=== PATIENT | female | born 1985 | race African-American/Black ===

== ENCOUNTER 2017-10-27 02:53 | Inpatient (IN) | payer OTHER ==
--- NOTE | 2017-10-11 14:09 | History & Physical Pre-Op ---
Kati Crooks 10/11/17 1400: General Information and HPI MD Statement: I have seen and personally examined BEULAH PAN and documented this H&P. The patient is a 32 year old F who presented with a patient stated chief complaint of neck pain with limited range of motion and right elbow muscle soreness, s/p ACDF C4-6 on 09/21/2017. Source of Information: patient, old records Exam Limitations: no limitations History of Present Illness: Beulah is a 32-year-old female who is recently status post anterior cervical decompression fusion C4-C6 on September 21, 2017. She is doing well postoperatively but does admit to achiness in her neck with range of motion as well as some minimal incisional discomfort. She does complain of right elbow muscle soreness but no left-sided symptoms. Due to the intraoperative findings of osteoporosis and spinal instability at the time of her anterior procedure, it was determined that Beulah was in need of a posterior cervical decompression and fusion with instrumentation and iliac crest bone grafting C4-C6 on 10/27/2017 for restoring stability. 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 . Psychosocial History Where Do You Live? Home Who Do You Live With? child Primary Language: Malay Smoking Status: Never Smoked ETOH Use: denies use Illicit Drug Use: denies illicit drug use Other Social History: Single with boyfriend. (1) 7 y/o son Employment History Employment: Employed Profession/Employer: [employer] Review of Systems Review of Systems: Remarkable for the above complaints. Exam & Diagnostic Data Last 24 Hrs of Vital Signs/I&O Height: 5' 1/4" Weight: 163 lbs. Physical Exam General Appearance Alert, Oriented X3, Cooperative Skin No Rashes, No Breakdown, No Significant Lesion HEENT Atraumatic, PERRLA, EOMI, Mucous Membr. moist/pink Neck Supple, No JVD, No thryomegaly, +2 Carotid Pulse wo Bruit Lymphatic Cervical nl Cardiovascular Regular Rate, Normal S1, Normal S2, No Murmurs Lungs Clear to Auscultation, Normal Air Movement Abdomen Normal Bowel Sounds, Soft, No Tenderness, No Masses Neurological Normal Gait, Normal Speech, Strength at 5/5 X4 Ext, Normal Tone, Sensation Intact, Reflexes 2+ Extremities No Clubbing, No Cyanosis, No Edema, Normal Pulses Vascular Normal Pulses Last 24 Hrs of Labs/Marlon: Laboratory Tests 10/27/17 0804: Anion Gap 12, Estimated GFR > 60, BUN/Creatinine Ratio 13.3, Glucose 101 H, Calcium 10.2, Total Bilirubin 1.2, AST 19, ALT 29, Alkaline Phosphatase 57, Total Protein 7.2, Albumin 4.5, Globulin 2.7, Albumin/Globulin Ratio 1.7, PT 12.0, INR 1.14, APTT 30, CBC w Diff NO MAN DIFF REQ, RBC 4.40, MCV 90.7, MCH 31.1 H, RDW 13.5, MPV 8.2, Gran % 42.6, Lymphocytes % 48.0, Monocytes % 6.5, Eosinophils % 2.2, Basophils % 0.7, Absolute Granulocytes 1.7, Absolute Lymphocytes 1.9, Absolute Monocytes 0.3, Absolute Eosinophils 0.1, Absolute Basophils 0, PUBS MCHC 34.3, Urine Color YEL, Urine Clarity CLEAR, Urine pH 7.0, Ur Specific [place] 1.015, Urine Protein NEG, Urine Ketones NEG, Urine Nitrite NEG, Urine Bilirubin NEG, Urine Urobilinogen 0.2, Ur Leukocyte Esterase NEG, Ur Microscopic EXAM NOT REQUIRED, Urine Hemoglobin NEG, Urine Glucose NEG, Urine Test NEGATIVE Assessment/Plan Assessment/Plan: Assessment: Spinal Instability and Osteoporosis s/p ACDF C4-6 on 09/21/2017. Plan: Beulah is scheduled for a posterior cervical decompression and fusion with instrumentation and iliac crest bone grafting C4-C6 on 10/27/2017. We discussed the procedure in full detail as well as the pre-and postoperative course, follow-up care, and anticipated recovery. We also discussed the postoperative do's and don'ts and discharge instructions. We discussed the benefits, alternatives, and risks, not to exclude, , paralysis, infection, bleeding, continued pain, failure of the surgery, need for future surgery, DVT, vascular injury, CSF leak, dysphagia, and hoarseness, etc., and given these risks, she still wishes to proceed. She is scheduled for an appointment with her primary care physician for preoperative clearance. Any changes in this patient's plan is based on this patient's outpatient clinical presentation. She has asked if possible, that we use sutures for the skin closure. As Ranked By This Provider Problem List: 1. Hypertension 2. Asthma 3. ADHD Copies To: Crispin KATZ,Neal Attending MD Review Statement Attending Statement Attending MD Statement: examined this patient, discuss w/resident/PA/VAMP CREASER, agreed w/resident/PA/VAMP CREASER, reviewed images Neal Roa MD 10/27/17 1152: General Information and HPI Allergies/Medications Allergies: Coded Allergies: pineapple (UNKNOWN 10/27/17) PINEAPPLES Home Med list Acetaminophen (Tylenol Extra Strength) 500 MG TABLET 1 TAB PO TID PRN TEMP>101 Albuterol Sulfate (Ventolin Hfa) 90 MCG HFA.AER.AD 2 PUF INH Q4 PRN SHORTNESS OF BREATH Bisacodyl (Dulcolax) 10 MG SUPP.RECT 1 SUP RC DAILY PRN CONSTIPATION Budesonide/Formoterol Fumarate (Symbicort 160-4.5 Mcg Inhaler) 160 MCG-4.5 MCG/ ACTUATION HFA.AER.AD 2 PUF INH BID SHORTNESS OF BREATH Calcium Carbonate/Vitamin D3 (Os-Yunior 500+D3 Caplet) 500 MG-200 TABLET 1 TAB PO BID BONE HEALTH Cholecalciferol (Vitamin D3) 1,000 UNIT TABLET 1 TAB PO DAILY BONE HEATLH Cyclobenzaprine HCl 10 MG TABLET 1 TAB PO BID MUSCLE RELAXANT (Reported) Docusate Sodium (Colace) 100 MG CAPSULE 1 CAP PO BID PRN CONSTIPATION Lisinopril 10 MG TABLET 10 MG PO DAILY HYPERTENSION Magnesium Hydroxide (Milk Of Magnesia) 400 MG/5 ML ORAL.SUSP 5 ML PO Q8P PRN CONSTIPATION Multiple Vitamin (Multivitamins) 1 EACH TABLET 1 TAB PO DAILY GENERAL HEALTH Quetiapine Fumarate 25 MG TABLET 25 MG PO QPM PRN SLEEP
[~2017-10-27] VITALS: Ht 154.9 cm; Wt 75.8 kg
[~2017-10-27 02:53] MED LIST: ADDERALL 20 MG20 MG PO; BISAC-EVAC10 M1 PR; CALCIUM CARBON500 M2 PO; CIPRO500 M1 PO; COLACE100 M1 PO; CYCLOBENZAPRINE10 M1 PO; DOCUSATE SODIU100 M3 PO; DULCOLAX10 M1 RC; ENALAPRIL MALEA10 M1 PO; ENALAPRIL MALEA20 M1 PO; MILK OF MA400 MG/52 PO; MULTIVITAMINS1 EAC9 PO; ONE DAILY MULT1 EAC2 PO; OS-CAL 500+D31 EAC1 PO; OXYCODONE-ACET1 EACH PO; PERCOCET 5-3251 EACH PO; SEROQUEL25 M1 PO; SYMBICORT 16010.2 GM INH; TYLENOL EXTRA500 M2 PO; TYLENOL325 M1 PO; VENTOLIN HFA18 GM INH; VITAMIN D31000 UNI2 PO
[2017-10-27 08:24] LABS: ABSOLUTE BASOPHIL COUNT 0 /CUMM (0.0-0.2); ABSOLUTE EOSINOPHIL COUNT 0.1 /CUMM (0.0-0.7); ABSOLUTE GRANULOCYTE CT 1.7 /CUMM (1.4-6.5); ABSOLUTE LYMPH COUNT 1.9 /CUMM (1.2-3.4); ABSOLUTE MONOCYTE COUNT 0.3 /CUMM (0.10-0.60); BASOPHIL % 0.7 % (0.0-2.0); EOSINOPHIL % 2.2 % (0-5); GRANULOCYTE % 42.6 % (42.2-75.2); HEMATOCRIT 39.9 % (37-47); MEAN CORPUSCULAR HGB 31.1 PG (27.0-31.0); MEAN CORPUSCULAR HGB CONC 34.3 G/DL (33.0-37.0); MEAN CORPUSCULAR VOLUME 90.7 FL (81.0-99.0); MEAN PLATELET VOLUME 8.2 FL (7.4-10.4); PLATELET COUNT 418 /CUMM (130-400); RBC DISTRIBUTION WIDTH 13.5 % (11.5-14.5); WHITE BLOOD CELL COUNT 3.9 /CUMM (4.8-10.8)
[2017-10-27 08:40] LABS: PTT 30 SEC (25-37)
--- NOTE | 2017-10-27 11:32 | Patient Discharge Instructions ---
Acute Coronary Syndrome Inclusion Criteria At DC or during hospital stay patient has or had the following: ACS DIAGNOSIS No Discharge Core Measures Meds if any: Prescribed or Continued at Discharge Meds if any: NOT Prescribed or Continued at Discharge Congestive Heart Failure Inclusion Criteria At DC or during hospital stay patient has or had the following: CHF DIAGNOSIS No Discharge Core Measures Meds if any: Prescribed or Continued at Discharge Meds if any: NOT Prescribed or Continued at Discharge Cerebrovascular accident Inclusion Criteria At DC or during hospital stay patient has or had the following: CVA/TIA Diagnosis No Discharge Core Measures Meds if any: Prescribed or Continued at Discharge Meds if any: NOT Prescribed or Continued at Discharge Venous thromboembolism Inclusion Criteria VTE Diagnosis No VTE Type NONE VTE Confirmed by (Test) NONE Discharge Core Measures - Per Current guidelines, there needs to be overlap - treatment for the first 5 days of Warfarin therapy. - If discharged on Warfarin prior to 5 days of - overlap therapy, the patient will need to be - assessed for post discharge needs including - *Post discharge parental anticoagulation - *Warfarin and/or parental anticoagulation education - *Follow up date to check INR post discharge At least 5 days overlap therapy as Inpatient No Meds if any: Prescribed or Continued at Discharge Note: Overlap Therapy is Warfarin and Anticoagulant Meds if any: NOT Prescribed or Continued at Discharge
[2017-10-27] MEDS ORDERED: MILK OF MA400 MG/52 PO (11:36)
[2017-10-27] MEDS ORDERED: VITAMIN D31000 UNI2 PO (11:36)
[2017-10-27] MEDS ORDERED: QUETIAPINE FUMA25 M1 PO (11:36)
[2017-10-27] MEDS ORDERED: COLACE100 M1 PO (11:36)
[2017-10-27] MEDS ORDERED: TYLENOL EXTRA500 M2 PO (11:36)
[2017-10-27] MEDS ORDERED: SYMBICORT 16010.2 GM INH (11:36)
[2017-10-27] MEDS ORDERED: OXYCODONE-ACET1 EACH PO (11:36)
[2017-10-27] MEDS ORDERED: VENTOLIN HFA18 GM INH (11:36)
[2017-10-27] MEDS ORDERED: OS-CAL 500+D31 EAC1 PO (11:36)
[2017-10-27] MEDS ORDERED: LISINOPRIL10 M1 PO (11:36)
[2017-10-27] MEDS ORDERED: DULCOLAX10 M1 RC (11:36)
[2017-10-27] MEDS ORDERED: MULTIVITAMINS1 EAC9 PO (11:36)
--- NOTE | 2017-10-27 14:53 | Operative Report ---
Operative/Inv Procedure Report Surgery Date: 10/27/17 Name of Procedure: Inspection of cervical fusion mass C3-6 laminectomies C3 4 5 6 lateral fusion with autologous bone graft fusion C3-6 instrumented wire fusion C3-6 morselized bone graft left posterior iliac crest. Placement and removal of Garcia tongs, use of fluoroscopy. Pre-Operative Diagnosis: Unstable cervical spine Post-Operative Diagnosis: Same Estimated Blood Loss: scant Surgeon/Hunting Sales Leader: Crispin KATZ,Neal Hughes M.D. Anesthesia: general endotracheal tube Operative/Procedure Note Note: After the patient was anesthetized, the Garcia tongs were applied and the patient was rolled onto the operating table. The back of the neck and left posterior iliac crest were sterilely prepped and draped. An incision was made over the iliac crest and carried laterally with electrocautery. The osteotome and curettes were used to collect morcellized bone graft, after which the wound was irrigated, packed with Gelfoam and closed in layers with absorbable suture, with nylon in the skin. The cervical incision was made sharply and electrocautery was used to dissected laterally from C3-7. The deep retractors were placed. The fusion was inspected and gross motion was present at both C4-5 and C5-6. The highspeed bur and curettes were used to create laminectomies at C3, 4, 5 and 6 in the form of keyhole foraminotomies. Fluoroscopy was used to identify the spinous process, and due to osteoporotic bone, the corticotomies of the spinous processes were placed superior on C4, but within bone and placed under direct vision. The corticotomy and C6 was placed centrally due to the sturdy spinous process. Wires were passed, twisted, and maintained position. There were trimmed and bent to the midline. There were checked with fluoroscopy , the lateral masses were decorticated with the high-speed bur and bone graft was packed. The wound was copiously irrigated, Gelfoam was placed over the laminotomy sites and closure of the cervical fascia and subcutaneous tissue was performed with absorbable suture. The skin was closed with nylon. After placement of sterile dressings, the patient was log rolled off the operating table and the Garcia tongs were removed. Patient was placed in a cervical collar prior to being log rolled off the operating table.
--- NOTE | 2017-10-27 15:54 | RADIOLOGY REPORT ---
EXAMINATION: XR CERVICAL SPINE , C-arm imaging CLINICAL INFORMATION: C4-C6 fusion COMPARISON: Cervical spine C-arm imaging 09/21/2017 TECHNIQUE: C-arm imaging. Dose: 2.06 mGy Images: 2 FINDINGS: 2 spot views were obtained over the lower cervical spine. This shows orthopedic hardware. Anterior fusion with orthopedic plate and screw partially visualized though the cervical spine is obscured by the density from the patient's shoulders. IMPRESSION: C-arm imaging for fusion lower cervical spine
[2017-10-27 16:00] VITALS: BP 140/100
--- NOTE | 2017-10-27 16:12 | PN- Neurosurgical ---
Subjective Subjective: POC: co pain. no nv, no numbness or weakness in the extremities. no diff speaking or swallowing. Objective Vital Signs and I&Os Intake & Output 10/27 0810/27 0000 10/26 0000 Intake Total Output Total Balance Patient 167 lb Weight vss, afebrile Physical Exam: wdwn, aox3, nad. head: wnl neck: trachea midline. posterior dressing in place, cdi, no swelling. BUE/LE nvi, sensation and motor intact. Assessment/Plan Assessment/Plan POD 0 sp Inspection of cervical fusion mass, C3-6 laminectomies, C3 4 5 6 lateral fusion with autologous bone graft fusion C3-6. soft cervical collar for comfort perioperative abx pain meds as needed heart healthy diet oob/ambulate dressing changes by surgery. neuro checks qshift. Core Measures Venous Thromboembolism VTE Risk Factors Surgery No Mechanical VTE Prophylaxis d/t N/A MechProphylax Ordered No VTE Pharm Prophylaxis d/t Other (surgeon declined)
--- NOTE | 2017-10-27 16:13 | Admission Core Measures ---
Acute Coronary Syndrome (CM) ACS Core Measures Acute Coronary Syndrome Diagnosis No Congestive Heart Failure (NEW) CHF Core Measures Congestive Heart Failure Diagnosis No Cerebrovascular Accident (NEW) CVA Core Measures CVA/TIA Diagnosis No Venous Thromboembolism VTE Core Babita (View Protocol) VTE Risk Factors Surgery No Mechanical VTE Prophylaxis d/t N/A MechProphylax Ordered No VTE Pharm Prophylaxis d/t Other (surgeon declined) Problem List As ranked by this Provider includes Assessment & Plan 1. Cervical stenosis of spinal canal HOME MEDS Home Med List Acetaminophen (Tylenol Extra Strength) 500 MG TABLET 1 TAB PO TID PRN TEMP>101 Albuterol Sulfate (Ventolin Hfa) 90 MCG HFA.AER.AD 2 PUF INH Q4 PRN SHORTNESS OF BREATH Bisacodyl (Dulcolax) 10 MG SUPP.RECT 1 SUP RC DAILY PRN CONSTIPATION Budesonide/Formoterol Fumarate (Symbicort 160-4.5 Mcg Inhaler) 160 MCG-4.5 MCG/ ACTUATION HFA.AER.AD 2 PUF INH BID SHORTNESS OF BREATH Calcium Carbonate/Vitamin D3 (Os-Yunior 500+D3 Caplet) 500 MG-200 TABLET 1 TAB PO BID BONE HEALTH Cholecalciferol (Vitamin D3) 1,000 UNIT TABLET 1 TAB PO DAILY BONE HEATLH Cyclobenzaprine HCl 10 MG TABLET 1 TAB PO BID MUSCLE RELAXANT (Reported) Docusate Sodium (Colace) 100 MG CAPSULE 1 CAP PO BID PRN CONSTIPATION Lisinopril 10 MG TABLET 10 MG PO DAILY HYPERTENSION Magnesium Hydroxide (Milk Of Magnesia) 400 MG/5 ML ORAL.SUSP 5 ML PO Q8P PRN CONSTIPATION Multiple Vitamin (Multivitamins) 1 EACH TABLET 1 TAB PO DAILY GENERAL HEALTH Quetiapine Fumarate 25 MG TABLET 25 MG PO QPM PRN SLEEP Discontinued Medications Oxycodone HCl/Acetaminophen (Oxycodone-Acetaminophen 5-325) 5 MG-325 MG TABLET 1 TAB PO Q4-6 PRN PRN PAIN CONTROL
--- NOTE | 2017-10-27 16:16 | Surg Short-stay <48hrs Dis Sum ---
Visit Information Visit Dates Admission Date: 10/27/17 Surgical Short Stay DC Summary Admission Diagnosis: cervical stenosis Final Diagnosis: same plus sp Inspection of cervical fusion mass C3-6 laminectomies C3 4 5 6 lateral fusion with autologous bone graft fusion C3-6 instrumented wire fusion C3-6 Procedure(s): see above Summary/Significant Findings: pt underwent the above mentioned procedure without complicaitons. she received periopeative abx for infectious prophylaxsis. soft cervical collar placed for comfort. pain meds given. no signs of infection, no complicaitons in the immediate post op period. her pain was controlled and deemed stable for dc home with out patient follow up. Condition at Discharge: good Discharge Disposition: home or self care Discharge instructions provided to patient/family: Yes Post discharge follow-up plan: with Dr Roa in 1-2 weeks
[2017-10-27 22:16] VITALS: BP 150/92
--- NOTE | 2017-10-28 06:50 | Event Note ---
Event Note Event Note: Pt c/o pain this morning despite morphine (1mg). IV APAP was added to her regimen x 4 doses q6 around the clock.
[2017-10-28 07:00] VITALS: BP 152/100
[2017-10-28 14:55] VITALS: BP 148/96
--- NOTE | 2017-10-28 15:49 | PN- Orthopedic ---
Subjective Subjective: Patient c/o expected postop incisional pain. No arm pain. Graft site tender. Patient ambulated in hallway. Tolerating pain meds. No N/V, CP, SOB, fever/ chills. Review of Systems: Remarkable for the above complaints. Objective Vital Signs and I&Os Vital Signs Date Time Temp Pulse Resp B/P B/P Pulse O2 O2 Flow FiO2 Mean Ox Delivery Rate 10/28 1455 98.3 110 20 148/96 98 Room Air 10/28 1209 98 162/100 10/28 1108 98 162/100 10/28 0959 Room Air 10/28 0700 99.2 100 20 152/100 100 Room Air 10/27 2216 98.4 106 20 150/92 97 Room Air 10/27 1836 60 140/100 10/27 1600 97.9 60 18 140/100 99 Room Air Intake & Output 10/28 1600 10/28 0800 10/28 0000 10/27 1600 10/27 0800 10/27 0000 Intake Total 540 680 Output Total 300 500 Balance 240 180 Intake, IV 300 200 Intake, Oral 240 480 Number 0 Bowel Movements Output, 50 Emesis Output, Urine 300 450 Patient 167 lb Weight Weight Reported by Patient Measurement Method Physical Exam General Appearance: well developed/nourished, alert, awake, mild distress Neck: Incisions C/D/I. Dressings changed. Respiratory: normal breath sounds, no respiratory distress Cardiovascular: regular rate/rhythm Abdomen: normal bowel sounds, soft, non-tender Extremities: Neurovascularly intact with no new or worsening gross motor or sensory loss. Skin: intact, normal color, warm/dry Assessment/Plan Assessment/Plan Assessment: S/p PCDF C4-6 with instr. Plan: D/C home Continue Percocet Ice prn Do's and Dont's explained Disch. Instr. given Will F/U as outpatient Problem List: 1. Hypertension 2. Asthma 3. ADHD 4. Cervical stenosis of spinal canal Core Measures Venous Thromboembolism VTE Risk Factors Surgery No Mechanical VTE Prophylaxis d/t N/A MechProphylax Ordered No VTE Pharm Prophylaxis d/t Other (surgeon declined) Attending MD Review Statement Attending Statement Attending MD Statement: discuss w/resident/PA/PANAMA HAT HYDRAULIC PRESS OPERATOR, agreed w/resident/PA/PANAMA HAT HYDRAULIC PRESS OPERATOR
== END 2017-10-28 19:45 | DRG 473 ==
LOC: SDA 02:53 → ENRESERV 12:08 → ENTRNSPT 13:20 → EDTRNSPT 13:30 → EDTRNSPTSTS 13:30 → 2NB 13:38 → CMPTRNSPT 13:49 → 2NB 10-28 19:45
PROVIDERS: Orthopaedic Surgery Orthopaedic Surgery of the Spine
PROC: 0QB30ZZ Excision of Left Pelvic Bone, Open Approach (ICD-10-PCS; principal; 2017-10-27)
PROC: 0RG2071 Fusion of 2 or more Cervical Vertebral Joints with Autologous Tissue Substitute, Posterior Approach, Posterior Column, Open Approach (ICD-10-PCS; principal; 2017-10-27)
DX: M53.2X2 Spinal instabilities, cervical region (principal); F90.9 Attention-deficit hyperactivity disorder, unspecified type; I10 Essential (primary) hypertension; M81.8 Other osteoporosis without current pathological fracture; J45.909 Unspecified asthma, uncomplicated; K21.9 Gastro-esophageal reflux disease without esophagitis
CPT/HCPCS: 2NBP; 36415; 72020; 81003; 81025; C9399; J0131; J0690; J2270; J2405; J3250; J3490; J7120